=== PATIENT | male | born 2000 | race African-American/Black ===

== ENCOUNTER 2020-12-06 19:17 | Emergency (ER) | payer OTHER ==
--- NOTE | 2020-12-06 19:44 | ED Physician Documentation ---
PD HPI UPPER EXT INJURY - Stated complaint Stated Complaint: EVALUATE RT ARM CAST - Chief complaint Chief Complaint: Ext Problem - History obtained from History obtained from: Patient - History of Present Illness Location: Right, Wrist Type of injury: Other (he has cast on right wrist s/p fracture repair and he vomited on it last night. It feels wet inside and smells. He called Ortho and was told to have it removed and splint placed. He has had it on a month and is due to be without cast in a week.) Associated symptoms: No: Numbness, Tingling Review of Systems Constitutional: denies: Fever, Chills Nose: denies: Rhinorrhea / runny nose, Congestion Throat: denies: Sore throat Respiratory: denies: Cough Neurologic: denies: Focal weakness, Numbness PD PAST MEDICAL HISTORY - Past Medical History Past Medical History: No - Allergies Allergies/Adverse Reactions: Allergies Allergy/AdvReac Type Severity Reaction Status Date / Time No Known Drug Allergies Allergy Verified 12/06/20 19:25 PD ED PE NORMAL - Vitals Vital signs reviewed: Yes - General General: Alert and oriented X 3, No acute distress, Well developed/nourished - Derm Derm: Normal color, Warm and dry - Extremities Extremities: Other (normal color and cap refill in fingers. Cast on right wrist extends up through fingers 2-3 with the MCPs flexed to about 90 degrees. The cast does have a notable emesis smell with some staining. ) - Neuro Neuro: No motor deficit, No sensory deficit Results - Vitals Vitals: Oxygen O2 Source Room air Procedures - General procedure General procedure: Cast removal without complications using cast saw. - Splint (location) right hand Splint applied by: Physician Type of splint: Fiberglass, Short arm (extends to the fingers 2-4 with them at about 90 degrees flexed, replicating the prior cast position.) Other: Patient tolerated well, No complications, Neurovascular intact PD MEDICAL DECISION MAKING - ED course Complexity details: considered differential, d/w patient Departure - Departure Disposition: 01 Home, Self Care Condition: Stable Record reviewed to determine appropriate education?: Yes Follow-Up: [facility] [Provider Group] Comments: Keep the splint clean and dry. Follow-up with orthopedics this coming week as intended. Discharge Date/Time: 12/06/20 21:03
[2020-12-06 21:05] VITALS: BP 127/79
== END 2020-12-06 21:03 | disposition home or self-care (01) ==
LOC: ED 19:17
DX: Z46.89 Encounter for fitting and adjustment of other specified devices (principal)
CPT/HCPCS: 29125; 99282

== ENCOUNTER 2021-05-07 19:01 | Emergency (ER) | payer OTHER ==
[2021-05-07] MEDS ORDERED: diphenhydrAMINE INJ 50 MG/ML VIAL IVP STA (19:30)
[2021-05-07] MEDS ORDERED: PROCHLORPERAZINE 10 MG/2 ML VIAL IVP STA (19:30)
[2021-05-07] MEDS ORDERED: SODIUM CHLORIDE 0.9% 1,000 ML IV STA (19:30)
[2021-05-07] MEDS ORDERED: IBUPROFEN 600 MG TABLET PO STA (19:41)
--- NOTE | 2021-05-07 19:50 | ED Physician Documentation ---
History of Present Illness - Stated complaint Stated Complaint: HEADACHE,DIZZY - Chief complaint Chief Complaint: Neuro - Additonal information Additional information: 21-year-old male presents emergency department for evaluation of headache and photophobia. He returned from [place] yesterday afternoon received the flu shot and then went to work on [employer] this evening. He did take some Tylenol which improved the headache but after a few hours it came back. His superiors within the [employer] requested he come to the ER for further evaluation. No fevers, no vomiting, no neck pain, no abdominal pain. Fully vaccinated for COVID-19. Review of Systems Constitutional: denies: Fever Eyes: reports: Photophobia Ears: reports: Reviewed and negative Nose: reports: Reviewed and negative Throat: reports: Reviewed and negative Cardiac: reports: Reviewed and negative Respiratory: reports: Reviewed and negative GI: reports: Reviewed and negative : reports: Reviewed and negative Skin: reports: Reviewed and negative Neurologic: reports: Headache PD PAST MEDICAL HISTORY - Past Medical History Past Medical History: No - Past Surgical History Past Surgical History: No - Allergies Allergies/Adverse Reactions: Allergies Allergy/AdvReac Type Severity Reaction Status Date / Time No Known Drug Allergies Allergy Verified 12/06/20 19:25 - Social History Does the pt smoke?: No Smoking Status: Never smoker Does the pt drink ETOH?: No Does the pt have substance abuse?: No - Immunizations Immunizations are current?: Yes PD ED PE NORMAL - General General: Alert and oriented X 3, No acute distress - HEENT HEENT: PERRL, Ears normal, Moist mucous membranes, Pharynx benign - Neck Neck: Supple, no meningeal sign, No adenopathy, No JVD, No bruit, Other - Cardiac Cardiac: RRR, No murmur - Respiratory Respiratory: Clear bilaterally - Abdomen Abdomen: Normal bowel sounds, Soft, Non tender, Non distended - Back Back: No CVA TTP, No spinal TTP - Derm Derm: Warm and dry - Extremities Extremities: No deformity - Neuro Neuro: Alert and oriented X 3, 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, No motor deficit, No sensory deficit Eye Opening: Spontaneous Motor: Obeys Commands Verbal: Oriented GCS Score: 15 Results - Vitals Vitals: Vital Signs - 24 hr 05/07/21 05/07/21 19:06 19:17 Temperature 36.3 C L Heart Rate 67 66 Respiratory 14 Rate Blood Pressure 149/66 H 133/69 H O2 Saturation 97 96 Oxygen O2 Source Room air PD MEDICAL DECISION MAKING - ED course Complexity details: reviewed results, re-evaluated patient, d/w patient ED course: This is a well-appearing 21-year-old male who presents to the emergency department for evaluation of a headache and photophobia that began this morning. He recently returned from [place] and received a flu shot and has not slept. He did not want to come to the ER but his superiors within the [employer] requested him to come. Neurological and cerebellar exam is unremarkable. He declined IV, IV fluids Compazine and Benadryl. He did acquiesced to a dose of ibuprofen. He is requesting to be discharged home. Clinically he does not have findings consistent with a meningitis or other headache associated red flags. Emergent return precautions discussed Departure - Departure Disposition: 01 Home, Self Care Clinical Impression: Headache Qualifiers: Headache type: unspecified Headache chronicity pattern: acute headache Intractability: not intractable Qualified Code(s): R51.9 - Headache, unspecified Condition: Stable Record reviewed to determine appropriate education?: Yes Instructions: ED Cephalgia Unspecified Comments: Tor we are going to have you take Tylenol or ibuprofen at home for your headache. If the headaches do not improve, you develop fevers, neck stiffness, have uncontrolled vomiting then please return immediately to the ER. I recommend that you drink a lot of water as dehydration can cause the headache and get plenty of rest. You are cleared to return to [employer] on Tuesday the fourth.
[2021-05-07 19:56] VITALS: BP 133/72
== END 2021-05-07 19:56 | disposition home or self-care (01) ==
LOC: ED 19:01
DX: R51.9 Headache, unspecified (principal); H53.149 Visual discomfort, unspecified
CPT/HCPCS: 99282; A9270

== ENCOUNTER 2021-12-08 21:36 | Emergency (ER) | payer OTHER ==
--- OUTSIDE RECORDS SUMMARY | 2021-12-08 22:03 | EXTERNAL MEDICAL SUMMARY RPT | Continuity of Care Document ---
:2000 Author Organization [facility] Address [address] [place] [address] Phone Allergies No information. Encounters No information. Functional Status No information. Immunizations No information. Medications No information. Problems No information. Procedures date description facility + IM or SQ Injection All +0000 Ketorolac Tromethamine 30 mg/ml Soln All Results/Labs No information. Social History No information. Vital Signs date measurement value units +0000 BMI BMI 25.94 kg/m2 +0000 BP_diastolic BP_diastolic 80 mm[H g] +0000 BP_systolic BP_systolic 138 mm[Hg] +0000 heart_rate heart_rate 71 /min +0000 height_metric height_metric 175.26 cm +0000 height_standard height_standard 69 in +0000 respiration_rate respiration_rate 18 /min +0000 temperature_metric temperature_metric 37.06 C +0000 temperature_standard temperature_standard 9 8.7 F +0000 weight_metric weight_metric 79.38 kg +0000 weight_standard weight_standard 175 lb
[2021-12-08] MEDS ORDERED: MAGNESIUM CITRATE 296 ML BOTTLE PO STA (23:58)
--- NOTE | 2021-12-09 | ED Physician Documentation ---
History of Present Illness - Stated complaint Stated Complaint: CONSTIPATION,ABD PX,NAUSEA - Chief complaint Chief Complaint: Abd Pain - History obtained from History obtained from: Patient - Additonal information Additional information: The patient comes to the emergency department chief complaint of constipation. He states that it started this morning and that he had felt the urge to have a bowel movement but was not quite able to do so. He states he did eat a lot of starchy foods over the holidays and that he does not generally suffer from constipation. He notes that his normal diet does not consist of many raw vegetables but he does eat a lot of fruit. No other complaints at this time. No nausea or vomiting. He has some cramping in his lower abdomen occasionally but he states this is not too bad. He is here because he called the nurse hotline for the [employer] and they told him to come in. Review of Systems Ten Systems: 10 systems reviewed and negative Constitutional: reports: Reviewed and negative Eyes: reports: Reviewed and negative Ears: reports: Reviewed and negative Nose: reports: Reviewed and negative Throat: reports: Reviewed and negative Cardiac: reports: Reviewed and negative Respiratory: reports: Reviewed and negative GI: reports: Abdominal Pain, Constipation : reports: Reviewed and negative Skin: reports: Reviewed and negative Musculoskeletal: reports: Reviewed and negative Neurologic: reports: Reviewed and negative Psychiatric: reports: Reviewed and negative Endocrine: reports: Reviewed and negative Immunocompromised: reports: Reviewed and negative PD PAST MEDICAL HISTORY - Past Medical History Past Medical History: No Cardiovascular: None Respiratory: None Neuro: None Endocrine/Autoimmune: None GI: None : None HEENT: None Psych: None Musculoskeletal: None Derm: None - Past Surgical History Past Surgical History: No - Present Medications Home Medications: Ambulatory Orders Medication Instructions Recorded Confirmed No Known Home Medications 12/08/21 12/08/21 - Allergies Allergies/Adverse Reactions: Allergies Allergy/AdvReac Type Severity Reaction Status Date / Time No Known Drug Allergies Allergy Verified 12/08/21 21:55 - Social History Does the pt smoke?: No Smoking Status: Never smoker Does the pt drink ETOH?: No Does the pt have substance abuse?: No - Immunizations Immunizations are current?: Yes - POLST Patient has POLST: No PD ED PE NORMAL - Vitals Vital signs reviewed: Yes - General General: Alert and oriented X 3, No acute distress, Well developed/nourished - HEENT HEENT: Atraumatic, PERRL, EOMI, Moist mucous membranes - Neck Neck: Supple, no meningeal sign - Cardiac Cardiac: RRR, No murmur, Strong equal pulses - Respiratory Respiratory: No respiratory distress, Clear bilaterally - Abdomen Abdomen: Soft, Non tender, Non distended - Derm Derm: Normal color, Warm and dry, No rash - Extremities Extremities: No deformity, No edema - Neuro Neuro: Alert and oriented X 3, washer and crusher tender 2-12 intact, Normal speech - Psych Psych: Normal mood, Normal affect Results - Vitals Vitals: Vital Signs - 24 hr 12/08/21 12/09/21 21:51 00:04 Temperature 36.8 C 36.7 C Heart Rate 72 68 Respiratory 16 16 Rate Blood Pressure 125/66 122/65 O2 Saturation 98 99 Oxygen O2 Source Room air PD MEDICAL DECISION MAKING - ED course Complexity details: considered differential, d/w patient ED course: I discussed symptomatic management with the patient. We have discussed the need for high-fiber diet to prevent constipation. I will give him magnesium citrate here in the emergency department to help with his constipation. We have discussed the usual indications for return. Departure - Departure Disposition: 01 Home, Self Care Clinical Impression: Constipation Qualifiers: Constipation type: unspecified constipation type Qualified Code(s): K59.00 - Constipation, unspecified Condition: Stable Instructions: ED Constipation Comments: You may drink half of the bottle of magnesium citrate now and in 8 to 12 hours, if you have not had a bowel movement, you may drink the other half. Please be sure you eat plenty of high-fiber foods, especially fresh fruits and vegetables, to help keep your stools soft. Please follow-up with your doctor as needed. Forms: Activity restrictions Discharge Date/Time: 12/09/21 00:04
[2021-12-09 00:05] VITALS: BP 122/65
== END 2021-12-09 00:04 | disposition home or self-care (01) ==
LOC: ED 21:36
DX: K59.00 Constipation, unspecified (principal)
CPT/HCPCS: 99282; A9270